=== PATIENT | male | born 1960 | race Caucasian/White ===

== ENCOUNTER → 2019-04-20 | Outpatient (CLI) | payer OTHER ==
--- NOTE | 2019-04-20 13:18 | MR ---
EXAMINATION TYPE: MR lumbar spine wo/w con DATE OF EXAM: 04/20/2019 COMPARISON: Lumbar spine x-rays dated 01/05/2013 HISTORY: Low back pain TECHNIQUE: Multiplanar, multisequence images of the lumbar spine were acquired utilizing 8.5 mL intravenous Gada vist gadolinium contrast. FINDINGS: The lumbar spine vertebral bodies maintain normal vertebral body height and alignment. Bone marrow signal is slightly patchy but within normal limits other than a small vertebral body hemangio ma of L3. Schmorl's node deformity seen in the superior endplate of L1. Multilevel disc desiccation i s seen. Conus medullaris is unremarkable terminating at L1-L2. Too small to accurately characterize T2 hyperintense and T1 isointense nonenhancing probable cyst is seen within the right kidney measurin g 3.6 mm only. L1-L2: No significant disc disease, spinal canal stenosis, nor neural foraminal narrowing. L2-L3: Small broad-based disc bulge and mild facet arthropathy without spinal canal stenosis nor neur al foraminal narrowing. L3-L4: Very small disc herniation seen centrally with annular tear superimposed on a broad-based disc bulge with facet arthropathy creating very minimal bilateral neural foraminal narrowing without spin al canal stenosis. L4-L5: Central annular tear and broad-based disc bulge are seen in combination with facet arthropathy creating moderate right and mild left neural foraminal narrowing due to the right eccentric configur ation of the disc bulge. Minimal ligamentum flavum buckling is also seen without significant spinal c anal stenosis. L5-S1: There is a small central disc herniation with annular tear superimposed on a broad-based disc bulge. This in combination with facet arthropathy creates moderate bilateral neural foraminal narrowi ng with the disc abutting the exiting L5 nerve roots without impingement. No spinal canal stenosis. There appears to be a defect in the ligamentum flavum at L5-S1 likely from prior surgical interventio n. There is subtle questionable enhancement surrounding the left S1 nerve root with adjacent ligamentum flavum buckling defect. Correlate for prior surgical intervention at this site. If present this findi ng likely represents mild degree of forming epidural fibrosis surrounding the left S1 nerve root. Thi s is marked on postcontrast image 1 and is at the most inferior field of view, only partially visuali zed. No other abnormal enhancement is seen in the cervical spine. IMPRESSION: 1. There appears to be a defect in the ligamentum flavum at L5-S1 with minimal enhancement surroundin g the proximal aspect of the exiting S1 nerve root on the left. Findings are favored to represent epi dural fibrosis however correlate with prior site of surgical intervention at the exact site of entry is unknown. 2. Small central disc herniation at L5-S1 and very small central disc herniation at L3-L4 with centra l annular tear at L4-L5. Degenerative disc disease and disc bulges at these levels in combination wit h facet arthropathy creating neural foraminal narrowing as detailed above without spinal canal stenos is. 3. No evidence of vertebral body height loss or malalignment.
== END ==
LOC: RADMRIMAIN 11:05
PROVIDERS: ATTEND Physician Assistant
DX: M48.061 Spinal stenosis, lumbar region without neurogenic claudication (principal); M51.27 Other intervertebral disc displacement, lumbosacral region; M51.26 Other intervertebral disc displacement, lumbar region; M51.36 Other intervertebral disc degeneration, lumbar region; M46.97 Unspecified inflammatory spondylopathy, lumbosacral region; M46.96 Unspecified inflammatory spondylopathy, lumbar region
CPT/HCPCS: 72158; A9585

== ENCOUNTER → 2021-10-30 | Outpatient (CLI) | payer OTHER ==
--- NOTE | 2021-10-30 07:43 | CTL ---
EXAMINATION TYPE: CT Low Dose Lung DATE OF EXAM ORDERED: 10/30/2021 HISTORY: Long-term tobacco use. Lung cancer screening CT DLP: 107.[address] CTDI: 2.7 mGy Automated exposure control for dose reduction was used. SCREENING VISIT: Baseline COMPARISON: None TECHNIQUE: Low dose computed tomography scan was performed through the chest at 1 mm thick sections a nd reconstructed images in multiple planes at 1 mm and [address] DIAGNOSTIC QUALITY: Satisfactory FINDINGS: LUNG NODULES: Present, detailed below: A few small scattered nodules. There is 3 mm calcified nodule or benign granuloma right middle lobe axial image 222. There is 2 mm peripheral nodule left mid lung axial image 148. No significant greater than 5 mm noncalcified pulmonary nodules. LUNGS: COPD: Severity: Mild Fibrosis: Severity: Mild scattered Lymph nodes: No greater than 1 cm Other findings: None RIGHT PLEURAL SPACE: Effusion: None Calcification: None Thickening: None Pneumothorax: None LEFT PLEURAL SPACE: Effusion: None Calcification: None Thickening: None Pneumothorax: None HEART: Heart Size: Normal Coronary Calcification: Mild Pericardial Effusion: Normal OTHER FINDINGS: Upper abdomen: None Bony thorax: None Supraclavicular region: None Other: None IMPRESSION: Mild emphysematous change with Some scattered small nodules, no significant greater than 6 mm noncalcified pulmonary nodules. CT LUNG RAD AND CT CHEST RECOMMENDATION: Lung-Rad 2 Benign Appearance or Behavior: Continue annual sc reening with LDCT in 12 months. S Modifier (other clinically significant findings): None
== END | disposition home or self-care (01) ==
LOC: RADCTMAIN 06:59
PROVIDERS: ATTEND Family Medicine
DX: Z12.2 Encounter for screening for malignant neoplasm of respiratory organs (principal); R91.1 Solitary pulmonary nodule; Z87.891 Personal history of nicotine dependence
CPT/HCPCS: 71271

== ENCOUNTER → 2022-11-19 | Outpatient (CLI) | payer OTHER ==
--- NOTE | 2022-11-19 14:11 | CTL ---
EXAMINATION TYPE: CT Low Dose Lung DATE OF EXAM ORDERED: 11/19/2022 HISTORY: Personal tobacco use. Lung cancer screening CT DLP: 88.[address] CTDI: 2.3 mGy Automated exposure control for dose reduction was used. SCREENING VISIT: Subsequent COMPARISON: 10/30/2021 TECHNIQUE: Low dose computed tomography scan was performed through the chest at 1 mm thick sections a nd reconstructed images in the coronal plane at [address] DIAGNOSTIC QUALITY: Satisfactory FINDINGS: LUNG NODULES: No new nodules identified. Previous described nodules are stable or not apparent on the current exam. LUNGS: COPD: Severity: None Fibrosis: Severity: None Lymph nodes: Non- Other findings: None RIGHT PLEURAL SPACE: Effusion: None Calcification: None Thickening: None Pneumothorax: None LEFT PLEURAL SPACE: Effusion: None Calcification: None Thickening: None Pneumothorax: None HEART: Heart Size: Normal Coronary calcification: None Pericardial effusion: None OTHER FINDINGS: Upper abdomen: Normal Bony thorax: Normal Supraclavicular region: Normal Other: Ascending thoracic aorta at the level the main pulmonary artery measures 3.2 cm. The main pul monary artery at the bifurcation measures 2.5 cm. IMPRESSION: 1. No suspicious findings FOLLOW UP CT CHEST RECOMMENDATION: CT LUNG RAD:
== END | disposition home or self-care (01) ==
LOC: RADCTMAIN 08:47
DX: Z12.2 Encounter for screening for malignant neoplasm of respiratory organs (principal); Z87.891 Personal history of nicotine dependence
CPT/HCPCS: 71271

== ENCOUNTER → 2023-08-31 | Outpatient (CLI) | payer OTHER | LOC: CPPFTMAIN 16:28 | DX: R06.02 Shortness of breath (principal); F17.200 Nicotine dependence, unspecified, uncomplicated | CPT/HCPCS: 94060; 94726; 94729 ==

== ENCOUNTER → 2023-09-02 | Outpatient (CLI) | payer OTHER ==
--- NOTE | 2023-09-02 10:16 | CA ---
Transthoracic Echo Report Name: Miguelito Barbour Age: 63 Gender: M : 1960 Exam Date: 09/02/2023 08:53 Exam Location: [facility] Ht (in): 73 Wt (lb): 185 Ordering Physician: [facility], Clinic Attending/Referring Phys: My Davalos PAC Supervisor [employer] Bryanna Trujillo, KIKA Procedure CPT: Indications: SOB R06.02 Cardiac Hx: Technical Quality: Fair Contrast 1: Total Dose (mL): Contrast 2: Total Dose (mL): MEASUREMENTS (Male / Female) Normal Values 2D ECHO LV Diastolic Diameter PLAX 4.4 cm 4.2 - 5.9 / 3.9 - 5.3 cm LV Systolic Diameter PLAX 2.7 cm IVS Diastolic Thickness 1.1 cm 0.6 - 1.0 / 0.6 - 0.9 cm LVPW Diastolic Thickness 1.3 cm 0.6 - 1.0 / 0.6 - 0.9 cm LV Relative Wall Thickness 0.6 RV Internal Dim ED PLAX 3.9 cm M-MODE Aortic Root Diameter MM 3.1 cm LA Systolic Diameter MM 4.5 cm LA Ao Ratio MM 1.5 AV Cusp Separation MM 2.1 cm DOPPLER AV Peak Velocity 144.8 cm/s AV Peak Gradient 8.4 mmHg AV Mean Velocity 95.6 cm/s AV Mean Gradient 4.4 mmHg AV Velocity Time Integral 26.5 cm LVOT Peak Velocity 132.8 cm/s LVOT Peak Gradient 7.1 mmHg LVOT Velocity Time Integral 25.0 cm Mitral E Point Velocity 57.0 cm/s Mitral A Point Velocity 53.2 cm/s Mitral E to A Ratio 1.1 MV Deceleration Time 225.3 ms MV E' Velocity 8.9 cm/s Mitral E to MV E' Ratio 6.4 FINDINGS Left Ventricle Mildly increased left ventricular wall thickness. Left ventricular cavity size normal. Normal left ventricular systolic function with no obvious regional wall motion abnormalities. Left ventricular ejection fraction is estimated at 55-60 %. Right Ventricle Normal right ventricular function. Mild right ventricular dilatation. Right ventricular systolic pressure within normal limits. Right Atrium Normal right atrial size. Left Atrium Normal left atrial size. Mitral Valve Structurally normal mitral valve. No mitral stenosis, regurgitation or prolapse. Aortic Valve Trileaflet aortic valve. No aortic valve stenosis or regurgitation. Aortic valve sclerosis. Tricuspid Valve Structurally normal tricuspid valve. Mild tricuspid regurgitation. Pulmonic Valve Trace pulmonic regurgitation. Pericardium No pericardial effusion. Aorta Normal size aortic root and proximal ascending aorta. CONCLUSIONS Normal LV size and systolic function Mild RV enlargement Thickening of the aortic valve leaflets with calcification Mass noted on the ventricular aspect of the aortic valve leaflet, small, possibly mobile No aortic valve stenosis Recommend JAG to evaluate the aortic valve structure Previewed by: Dr. Urbano Cuadra MD (Electronically Signed) Final Date: 02 September 2023 10:16
--- NOTE | 2023-09-02 12:09 | NM ---
EXAMINATION TYPE: NM stress cardiolite complete DATE OF EXAM: 09/02/2023 COMPARISON: NONE CLINICAL INDICATION: Male, 63 years old with history of SOB R06.02; TECHNIQUE: After the intravenous administration of 9.5 mCi Tc 99m Sestamibi - Rest images obtained 4 5 minutes post injection. The patient exercised using a ANAMIKA protocol and 1 minute prior to peak e xercise was injected with 25.7 mCi Tc 99m Sestamibi - Stress images obtained 15 minutes post injectio n. FINDINGS: Targeted heart rate was achieved during performance of the study. Review of stress and rest SPECT sophia ges demonstrates no distinct perfusion abnormality. Attenuation artifact seen inferior wall. Gated a nalysis shows normal wall motion with an estimated left ventricular ejection fraction of 57 %. IMPRESSION: No scintigraphic evidence for reversible ischemia
--- NOTE | 2023-09-02 18:32 | CA ---
Exercise Nuclear Stress Test Report Name: Miguelito Barbour Exam Date: 09/02/2023 10:29 Exam Location: [facility] Ht (in): 73 Wt (lb): 180 BSA: 2.06 Ordering Phys: [facility], Clinic Referring Phys: My Davalos PAC Technologist: FERNANDO,, Age: 63 Gender: M : 1960 Procedure CPT: Indications: SOB R06.02 ICD-10 Codes: Patient History: Shortness of breath on exertion Medications: Meds past 24 hrs: Pretest Chest Pain: STRESS TEST Jaguar Protocol Exercise Duration (min:sec): 09:[address] Depressions (mm): Angina Score: Simpson Score: Resting HR (bpm): 79 Peak HR (bpm): 155 Resting BP (mmHg): 138 / 79 Peak BP (mmHg): 199 / 85 MPHR: 158 Target HR: 134 % MPHR: 98 METS: 10.3 Total Dose: Peak Dose: Atropine: Double Product: 25082 BP Response: Stress Termination: Reached target heart rate Stress Symptoms: No chest pain or symptoms Stress Summary: ECG ANALYSIS Resting ECG: Stress ECG: CONCLUSIONS Baseline 179 beats a minute, Baseline blood pressure 130/79 mmHg Baseline creatinine EKG shows sinus rhythm and normal ST segments Patient exercised on a Jaguar protocol for 9 minutes achieving a peak heart rate 155 beats a minute No symptoms noted The procedure and so ischemia No arrhythmias Dr. Urbano Cuadra MD (Electronically Signed) Final Date: 02 September 2023 18:32
== END | disposition home or self-care (01) ==
LOC: RADECHMAIN 08:34
DX: R06.02 Shortness of breath (principal); I51.7 Cardiomegaly
CPT/HCPCS: 93017; 93306; 78452; A9500

== ENCOUNTER → 2023-10-14 | Outpatient (CLI) | payer OTHER | END | disposition home or self-care (01) | LOC: RADECHMAIN 10:39 | DX: Z53.9 Procedure and treatment not carried out, unspecified reason (principal) ==

== ENCOUNTER → 2023-11-18 | Outpatient (CLI) | payer OTHER ==
--- NOTE | 2023-11-18 10:50 | CTL ---
EXAMINATION TYPE: CT Low Dose Lung DATE OF EXAM ORDERED: 11/18/2023 HISTORY: Long-term tobacco use. Lung cancer screening CT DLP: 107.[address] CTDI: 2.7 mGy Automated exposure control for dose reduction was used. SCREENING VISIT: Second study after baseline COMPARISON: Prior studies 2022 and 2020 TECHNIQUE: Low dose computed tomography scan was performed through the chest at 1 mm thick sections a nd reconstructed images in multiple planes at 1 mm and [address] DIAGNOSTIC QUALITY: Satisfactory FINDINGS: LUNG NODULES: Present, detailed below: A few small scattered nodules redemonstrated. Stable 3 mm calcified nodule or benign granuloma right middle lobe axial image 223. Stable 2 to 3 mm peripheral calcified nodule right lower lobe axial image 175. There is stable 2 mm peripheral nodule left mid lung axial image 141. No new or enlarging greater than 5 mm noncalcified pulmonary nodules. LUNGS: COPD: Severity: Mild Fibrosis: Severity: Mild scattered Lymph nodes: No greater than 1 cm Other findings: None RIGHT PLEURAL SPACE: Effusion: None Calcification: None Thickening: None Pneumothorax: None LEFT PLEURAL SPACE: Effusion: None Calcification: None Thickening: None Pneumothorax: None HEART: Heart Size: Normal Coronary Calcification: Mild Pericardial Effusion: Normal OTHER FINDINGS: Upper abdomen: None Bony thorax: None Supraclavicular region: None Other: None IMPRESSION: Mild emphysematous change with stable scattered tiny nodules, no significant new or enlar ging greater than 6 mm noncalcified pulmonary nodules. CT LUNG RAD AND CT CHEST RECOMMENDATION: Lung-Rad 2 Benign Appearance or Behavior: Continue annual sc reening with LDCT in 12 months. S Modifier (other clinically significant findings): None
== END | disposition home or self-care (01) ==
LOC: RADCTMAIN 09:19
DX: Z12.2 Encounter for screening for malignant neoplasm of respiratory organs (principal); J43.9 Emphysema, unspecified; Z87.891 Personal history of nicotine dependence
CPT/HCPCS: 71271

== ENCOUNTER 2023-12-23 10:02 | Day surgery (SDC) | payer OTHER ==
[2023-12-21 11:44] VITALS: BMI 24.4
[~2023-12-23 10:02] MED LIST: LACTATED RINGERS 1,000 ML IV SCH
[2023-12-23] MEDS: LACTATED RINGERS 1,000 ML IV ONE (10:44)
[2023-12-23 11:05] VITALS: TEMP 98.5
[2023-12-23] MEDS ORDERED: LIDOCAINE 1% INJ 10MG/ML (20 ML MDV) ONE (12:00)
[2023-12-23] MEDS ORDERED: PROPOFOL 10 MG/ML 20 ML VIAL IV ONE (12:00)
--- NOTE | 2023-12-23 12:22 | P.PCN ---
Date of Procedure: 12/23/23 Procedure(s) Performed: BRIEF HISTORY: Patient is a 63-year-old pleasant male scheduled for an elective colonoscopy as a part of evaluation change in bowel habits for the last 6 months duration. His been having alternating diarrhea and constipation with no rectal bleeding. No family history of colorectal neoplasia. PROCEDURE PERFORMED: Colonoscopy with snare polypectomy. PREOPERATIVE DIAGNOSIS: Change in bowel habits of 6 months duration. IV sedation per Anesthesia. PROCEDURE: After informed consent was obtained, the patient, was brought into the endoscopy unit. IV sedation was administered by Anesthesia under continuous monitoring. Digital rectal examination was normal. Initially the Olympus CF-160 flexible video colonoscope was then inserted in the rectum, gradually advanced into the cecum without any difficulty. Careful examination was performed as the scope was gradually being withdrawn. Ileocecal valve and the appendiceal orifice were visualized and appeared normal. Prep was excellent. Mucosa of the cecum, appeared normal. In the ascending colon there was a 1.2 cm broad-based polyp that was removed by snare polypectomy. Rest of the ascending colon, transverse colon, descending colon, sigmoid colon, and rectum appeared normal. In the proximal rectum there was a 5 mm polyp that was removed by cold snare polypectomy. Retroflexion was performed in the rectum and no lesions were seen. The patient tolerated the procedure well. IMPRESSION: 1.2 cm broad-based ascending colon polyp status post snare polypectomy 5 mm proximal rectal polyp status post cold snare polypectomy RECOMMENDATIONS: Findings of this examination were discussed with the patient as well as his family. He was advised to follow with the biopsy results. If the biopsy reveals adenoma he can have a repeat colonoscopy in 3 years..
[2023-12-23 12:37] VITALS: RESP 14
[2023-12-23 13:07] VITALS: BP 142/80; PULSE 71
== END 2023-12-23 12:54 ==
LOC: ORWHC2ENDO 10:02
PROVIDERS: ATTEND Internal Medicine Gastroenterology
DX: D12.2 Benign neoplasm of ascending colon (principal); R19.4 Change in bowel habit; I10 Essential (primary) hypertension; Z79.899 Other long term (current) drug therapy; Z88.8 Allergy status to other drugs, medicaments and biological substances
CPT/HCPCS: 88305; 45385; J2001; J2704

== ENCOUNTER → 2024-01-12 | Outpatient (CLI) | payer OTHER ==
[2024-01-12 16:04] LABS: Carbon Dioxide 26.7 mmol/L (21.6-31.8); Chloride 102 mmol/L (96-109); Potassium 5.2 mmol/L (3.5-5.5); Sodium 139 mmol/L (135-145)
[2024-01-12 16:10] LABS: HGB 14.5 g/dL (13.0-17.0); MCH 31.8 pg (27.0-32.0); MCHC 33.7 g/dL (32.0-37.0); MCV 94.3 FL (80.0-97.0); Mean Platelet Volume 10.4 FL (9.5-12.2); NRBC Per 100 WBC 0 X 10*3/uL (0.00-0.01); Platelet Count 245 X 10*3/uL (140-440); RBC 4.56 X 10*6/uL (4.40-5.60); RDW 13.2 % (11.5-14.5); WBC 4.95 X 10*3/uL (4.50-10.00)
== END | disposition home or self-care (01) ==
LOC: LABPAT 09:37
PROVIDERS: ATTEND Internal Medicine
DX: Z01.818 Encounter for other preprocedural examination (principal); R06.02 Shortness of breath
CPT/HCPCS: 36415; 80051; 82565; 84520; 85027

== ENCOUNTER → 2024-02-24 | Outpatient (CLI) | payer OTHER ==
--- NOTE | 2024-02-24 08:04 | US ---
EXAMINATION TYPE: US Aorta Screening DATE OF EXAM: 02/24/2024 COMPARISON: NONE CLINICAL INDICATION: Male, 64 years old with history of I71.4 SCREENING FOR AAA; Screening for AAA TECHNIQUE: Multiple sonographic images of the abdominal aorta are obtained. FINDINGS: EXAM MEASUREMENTS: Abdominal Aorta: Proximal: 2.5 x 2.6cm Mid: 2.6 x 2.6 cm Distal: 2.0 x 2.4 cm Bifurcation: Right Iliac: 1.2 x 1.5 Left Iliac: 1.2 x 1.4 [employer] ASSOCIATE NOTES: Aorta appears to be ectatic throughout. Distal portions partially obscured by cindy wel gas IMPRESSION: No evidence for abdominal aortic aneurysm.
== END | disposition home or self-care (01) ==
LOC: RADUSWWP 02-10 06:52
PROVIDERS: ATTEND Family Medicine
DX: I71.40 Abdominal aortic aneurysm, without rupture, unspecified (principal); Z13.6 Encounter for screening for cardiovascular disorders
CPT/HCPCS: 76706

== ENCOUNTER → 2024-12-14 | Outpatient (CLI) | payer OTHER ==
--- NOTE | 2024-12-14 09:40 | CTL ---
EXAMINATION TYPE: CT Low Dose Lung DATE OF EXAM ORDERED: 12/14/2024 COMPARISON: Multiple CT Low Dose Lung with most recent 11/18/2023 CLINICAL INDICATION: Male, 64 years old with history of Z12.2 ENCNTR SCREEN FOR MALIGNANT NEOPLASM OF RESP; PHH, Nicotine dependence., Lung cancer screening, History of Smoking/tobacco use. TECHNIQUE: Low dose computed tomography scan was performed through the chest at 1 mm thick sections a nd reconstructed images in multiple planes at 1 mm and [address] DLP: 100.[address] CTDI: 2.6 mGy Automated exposure control for dose reduction was used. CT DIAGNOSTIC QUALITY: Satisfactory FINDINGS: Nodules: Stable calcified granulomas within the right middle and lower lobes. Couple of tiny pulmonary micronodules of the exam including a peripheral left midlung 2 mm pulmonary nodule (series 4, image 133). No new or enlarging pulmonary nodules. LUNGS: COPD: Severity: Minimal Fibrosis: Severity: None Lymph nodes: None Other findings: None RIGHT PLEURAL SPACE: Effusion: None Calcification: None Thickening: None Pneumothorax: None LEFT PLEURAL SPACE: Effusion: None Calcification: None Thickening: None Pneumothorax: None HEART: Heart Size: Normal Coronary Calcification: Small Pericardial Effusion: None OTHER FINDINGS: Upper abdomen: None Bony thorax: None Supraclavicular region: None Other: None IMPRESSION: Couple of stable pulmonary micronodules and calcified granulomas. No new or enlarging pul monary nodules. CT LUNG RAD AND CT CHEST RECOMMENDATION: Lung-Rad 2 Benign Appearance or Behavior: Continue annual sc reening with LDCT in 12 months. S Modifier (other clinically significant findings): None [facility], , 12/14/2024 9:38 AM
== END | disposition home or self-care (01) ==
LOC: RADCTMAIN 08:45
PROVIDERS: ATTEND Internal Medicine Pulmonary Disease
DX: Z12.2 Encounter for screening for malignant neoplasm of respiratory organs (principal); J44.9 Chronic obstructive pulmonary disease, unspecified; R91.8 Other nonspecific abnormal finding of lung field; J98.4 Other disorders of lung; Z87.891 Personal history of nicotine dependence
CPT/HCPCS: 71271